=== PATIENT | female | born 1970 | race Caucasian/White ===

== ENCOUNTER 2020-08-09 11:15 | Emergency (ER) | payer BC, SELFPAY ==
[2020-08-09] VITALS (8 sets, daily range): BP systolic 114–151; BP diastolic 65–79; PULSE 81–117; RESP 16–24; TEMP 36.7–37; O2SAT 86–99; BMI 19.6
--- NOTE | 2020-08-09 11:15 | ECG_ITS ---
APPROVED REPORT Exam: Resting ECG HR:79 bpm ECG Measurements Heart Rate 79 AXES MN 88 P 79 QRSd 74 QRS 89 QT 442 T 69 QTc 506 Conclusion Sinus rhythm with marked sinus arrhythmia with short MN Anteroseptal infarct, age undetermined T wave abnormality, consider lateral ischemia Prolonged QT Abnormal ECG Electronically signed by : Cong Chin, 08/10/2020 08:49:05
[2020-08-09 11:44] LABS: Basophils # 0.3 K/mm3 (0-0.2); Basophils % 0.8 % (0.1-2.0); Eosinophils # 1.9 K/mm3 (0.0-0.4); Eosinophils % 5.5 % (0.1-12.0); Hematocrit 41.9 % (37.0-47.0); Hemoglobin 12.3 g/dL (12.2-16.2); Lymphocytes # 1.6 K/mm3 (0.7-4.5); Lymphocytes % 4.6 % (10-50); Mean Corpuscular HGB Conc 29.3 g/dL (31.8-35.4); Mean Corpuscular Volume 81.9 fl (81-99); Mean Platelet Volume 7.6 fl (7.4-10.4); Monocytes # 1.3 K/mm3 (0.1-1.0); Monocytes % 3.7 % (1.7-9.3); Neutrophils # 29.2 K/mm3 (1.8-7.8); Neutrophils % 85.4 % (37.0-80.0); Platelet Count 286 K/mm3 (142-424); Red Blood Count 5.12 M/mm3 (4.20-5.40); Red Cell Distribution Width 15.8 % (11.5-17.5); White Blood Count 34.2 K/mm3 (4.8-10.8)
[2020-08-09 11:46] LABS: Potassium 3.7 mmoL/L (3.5-5.1); Sodium 132 mmol/L (136-145)
[2020-08-09 11:48] LABS: Bilirubin,Unconjugated 0.4 mg/dL (0.0-1.1); Blood Urea Nitrogen 17 mg/dl (7-17); Creatinine Clearance Estimated 165 mL/min (50-200); Estimated Glomerular Filt Rate 235 ml/min (>60); GFR (African American) 284 ML/MIN (>60)
[2020-08-09 11:49] LABS: Alanine Aminotransferase 175 U/L (12-78); Albumin Level 3.4 g/dl (3.5-5.0); Alkaline Phosphatase 330 U/L (38-126); Aspartate Amino Transferase 77 U/L (14-36); Bilirubin,Direct 0.1 mg/dl (0.0-0.4); Bilirubin,Indirect 0.4 mg/dL (0.0-0.9); Bilirubin,Total 0.5 mg/dl (0.2-1.3); Calcium 8.5 mg/dl (8.4-10.2); Glucose 99 mg/dl (74-100); Total Protein,Serum 6.3 g/dl (6.3-8.2)
[2020-08-09 12:00] LABS: Troponin I 0.04 ng/ml (0.00-0.034)
[2020-08-09 12:01] LABS: Anion Gap 5.7 mEq/L (5-15); Chloride 79 mmol/L (98-107)
[2020-08-09 12:02] LABS: Carbon Dioxide 51 mmol/L (22.0-30.0)
[2020-08-09 12:03] LABS: MANUAL DIFFERENTIAL MANUAL DIFFERENTIAL (MANUAL DIFF)
--- NOTE | 2020-08-09 12:03 | PC.NURSE ---
notified ER Of critical CO2 on chemistry panel
--- NOTE | 2020-08-09 12:30 | PC.NURSE ---
LAB KNOWS TO DRAW BLOOD
--- NOTE | 2020-08-09 12:36 | XR_ITS ---
PROCEDURE: XR CHEST PORTABLE CLINICAL HISTORY: weakness COMPARISON: No exams were available for comparison FINDINGS: The cardiomediastinal silhouette and pulmonary vascularity are within normal limits. There is an ill-defined area of increased density in the left upper lobe laterally overlying the 3rd rib anteriorly. This may be due to summation density or due to patchy area of infiltrate or even developing nodule. Upright PA and chest may provide further evaluation. Mild thoracic scoliosis convex right. IMPRESSION: Nonspecific patchy density left upper lobe as described above. Possible small area of infiltrate or developing nodule versus. Consider follow-up confirm stability. Dictated by: Terrell Lucero MD 08/09/2020 13:44 Terrell Lucero MD in [facility] 08/09/2020 13:44
[2020-08-09 12:59] LABS: Eosinophils % 7 % (0-3); Hypochromasia 1+; Lymphocytes % 5 % (10-50); Monocytes % 4 % (2-9); Neutrophils % 79 % (42-76); Platelet Estimate Normal; Total Cells Counted 100
[2020-08-09 13:09] LABS: Ammonia 33 umol/L (9-30)
--- NOTE | 2020-08-09 13:55 | CT_ITS ---
PROCEDURE: CT HEAD/BRAIN WO CON CLINICAL INDICATION: fall COMPARISON: No exams were available for comparison TECHNIQUE: Axial images obtained. All CT scans at the facility use one or more dose reduction, viz: automated exposure control, ma/kV adjustment per patient size (including targeted exams where dose is matched to indication, i.e. head), or iterative reconstruction technique. FINDINGS: No midline shift, mass effect, intracranial hemorrhage, hydrocephalus, or extra-axial fluid collection is evident. In the left frontal parietal region medially there is a small area of decreased density measuring 8 mm the tay-white matter junction. The calvarium has an unremarkable appearance. No mastoid effusion. Small air-fluid level left maxillary sinus. IMPRESSION: 1. 8 mm area of decreased attenuation in the left frontal parietal junction tay-white matter. This is of uncertain clinical significance but could represent a small metastatic focus. CT of the chest done the same day suggest liver metastasis and bony metastasis. CT head with contrast or preferably MRI without and with contrast may provide further evaluation. 2. Left maxillary sinus disease. 3. Otherwise negative Dictated by: Terrell Lucero MD 08/09/2020 14:58 Terrell Lucero MD in [facility] 08/09/2020 14:58
--- NOTE | 2020-08-09 13:56 | CT_ITS ---
PROCEDURE: CT CHEST WO CON CLINICAL INDICATION: possible infiltrate on cxr Weakness and confusion COMPARISON: CR XR CHEST PORTABLE from 08/09/2020 TECHNIQUE: Axial images obtained with sagittal and coronal reformats. All CT scans at the facility use one or more dose reduction, viz: automated exposure control, ma/kV adjustment per patient size (including targeted exams where dose is matched to indication, i.e. head), or iterative reconstruction technique. FINDINGS: HEART AND MEDIASTINAL STRUCTURES: There are few scattered small mediastinal lymph nodes. Mediastinal and hilar evaluation is limited without IV contrast may read LUNGS AND PLEURAL SPACES: COPD with centrilobular emphysema and scattered areas of scarring. In the right apex there is a 4 mm noncalcified nodular opacity with other smaller opacities in this region. In the right upper lobe posteriorly there is a noncalcified spiculated nodule measuring 13 mm. There are other scattered small nodular opacities in both lungs. These are nonspecific. There are no previous exams for comparison to determine if these are old or new. Faint areas of ground-glass attenuation are present in the left upper lobe, lingula, and left lower lobe. A more dense area of consolidation is present in the left lung base posterior medially. An additional area of more dense consolidation is present within the lingula anteriorly. There is 11 mm nodular opacity in the right middle lobe medially BONY STRUCTURES: A sclerotic lesion involves the T7 vertebral body inferiorly and on the left. A mixed lytic and lucent lesion involves the T11 vertebral body centrally and on the left with extension into the pedicle anteriorly. Wedge compression changes involve T12 with loss of height anteriorly of greater than 50 percent and minimal retropulsion of the posterior inferior aspect of T12 by 5 mm. This may be a pathological fracture. There is some decreased density involving the central aspect of the vertebral body suggesting the lytic process. Small sclerotic focus involves the left 5th rib medially a mixed lytic and sclerotic lesion involves the sternum superiorly and on the right. UPPER ABDOMEN: There are multiple low-dense lesions of the liver within both hepatic lobes consistent with diffuse metastatic disease. ADDITIONAL FINDINGS: Along the anterior aspect of the chest wall on the right there is a 11 mm soft tissue nodule IMPRESSION: 1. Suspicious right upper lobe nodule with numerous other small pulmonary nodules consistent with neoplasm. Possibly due to primary lung cancer with metastatic foci. 2. Patchy ground-glass areas of attenuation in both lower lobes and in the right middle lobe and lingula consistent with small areas of bilateral pneumonia which could be related to Covid19. 3. Mixed lytic and blastic lesion of the sternum and T11 with a sclerotic lesion of T7 and a pathological fracture of T12 consistent with metastatic disease 4. Numerous hypodense hepatic masses measuring up to 6 cm consistent with metastatic disease 5. Subcutaneous nodule along the right chest wall which could be due to primary neoplasm or metastatic disease. Mammogram with ultrasound suggested for further evaluation. Dictated by: Terrell Lucero MD 08/09/2020 14:53 Terrell Lucero MD in [facility] 08/09/2020 14:53
--- NOTE | 2020-08-09 14:33 | PC.NURSE ---
PT BACK FROM CT
[2020-08-09 15:25] LABS: Lactic Acid 0.9 mmol/L (0.7-2.1)
[2020-08-09 15:25] LABS: Troponin I 0.04 ng/ml (0.00-0.034)
--- NOTE | 2020-08-09 15:46 | [facility].EDGENADL ---
ED Disposition Clinical Impression: Lung cancer Qualifiers: Laterality: right Lung location: upper lobe of lung Qualified Code(s): C34.11 - Malignant neoplasm of upper lobe, right bronchus or lung Disposition: Home, Self-Care Condition on Discharge: Fair Instructions: How to Prevent Falls Referrals: Provider,Referral, [Primary Care Provider] - Time of Disposition: 15:58 - Critical Care Critical Care Time: No Attestation: On 08/09/20, the high probability of a clinically significant, sudden or life threatening deterioration of the following system(s) required my full and direct attention, intervention and personal management. The time I documented below is in addition to time spent performing reported procedures but includes the following listed in this critical care notation. Medical Decision Making - Medical Records Medical records reviewed: Yes: I reviewed the patient's medical records. MR Comment: Patient has been evaluated and the findings are as follows White blood cell count is 34.2 electrolytes are essentially within normal limits liver enzymes are elevated chest CT shows lung cancer with metastatic foci bilateral pneumonia is also noted CT of the head shows possible metastatic disease to the brain chest x-ray shows bilateral pneumonia patient wants to go home she states she only came here for evaluation of her fall states that she has doctors at [facility] in [place] and she will take up care with them - Len Inquiry Pt receiving controlled substance: No Vital Signs: 08/09/20 11:25 08/09/20 11:40 08/09/20 12:23 Temperature 98.6 F Temperature Source Oral Pulse Rate 87 Pulse Rate [Apical] 84 Respiratory Rate 22 20 Blood Pressure 118/78 Blood Pressure [Left Arm] 151/79 H Blood Pressure Mean Blood Pressure Mean [Left Arm] 103 Blood Pressure Source [Left Arm] Automatic Cuff Blood Pressure Position [Left Arm] Sitting 02 Sat by Pulse Oximetry 86 L 96 92 L Oxygen Delivery Method Nasal Cannula Nasal Cannula Nasal Cannula Oxygen Flow Rate (LPM) 3 4 4 08/09/20 12:30 08/09/20 13:00 08/09/20 13:30 Temperature Temperature Source Pulse Rate 117 H 95 H 89 Pulse Rate [Apical] Respiratory Rate 24 24 20 Blood Pressure 125/65 129/79 114/68 Blood Pressure [Left Arm] Blood Pressure Mean 102 95 83 Blood Pressure Mean [Left Arm] Blood Pressure Source [Left Arm] Blood Pressure Position [Left Arm] 02 Sat by Pulse Oximetry 92 L 92 L 92 L Oxygen Delivery Method Oxygen Flow Rate (LPM) 08/09/20 14:00 Temperature Temperature Source Pulse Rate 99 H Pulse Rate [Apical] Respiratory Rate 22 Blood Pressure 124/76 Blood Pressure [Left Arm] Blood Pressure Mean 86 Blood Pressure Mean [Left Arm] Blood Pressure Source [Left Arm] Blood Pressure Position [Left Arm] 02 Sat by Pulse Oximetry 94 L Oxygen Delivery Method Oxygen Flow Rate (LPM) - Lab Data Lab results reviewed: Yes: I reviewed the patient's lab results. Lab Results 08/09/20 11:25: WBC 34.2 H*, RBC 5.12, Hgb 12.3, Hct 41.9, MCV 81.9, MCH 24.0 L, MCHC 29.3 L, RDW 15.8, Plt Count 286, MPV 7.6, Neut % (Auto) 85.4 H, Lymph % (Auto) 4.6 L, [place] % (Auto) 3.7, Eos % (Auto) 5.5, Baso % (Auto) 0.8, Neut # (Auto) 29.2 H, Lymph # (Auto) 1.6, [place] # (Auto) 1.3 H, Eos # (Auto) 1.9 H, Baso # (Auto) 0.3 H, Total Counted 100, Neutrophils % (Manual) 79 H, Band Neutrophils % 3.0, Lymphocytes % (Manual) 5 L, Monocytes % (Manual) 4, Eosinophils % (Manual) 7 H, Metamyelocytes % 1.0, Blast Cells % 1.0, Platelet Estimate Normal, Hypochromasia 1+ 08/09/20 11:25: Sodium 132 L, Potassium 3.7, Chloride 79 L, Carbon Dioxide 51 H*, Anion Gap 5.7, BUN 17, Creatinine 0.30 L, Estimated Creat Clear 165, Estimated GFR 235, Est GFR ( Amer) 284, Glucose 99, Calcium 8.5, Total Bilirubin 0.5, Direct Bilirubin 0.1, Conjugated Bilirubin 0.0, Indirect Bilirubin 0.4, Unconjugated Bilirubin 0.4, AST 77 H, ALT 175 H, [place]
[2020-08-09 15:52] LABS: Adenovirus,PCR Not Detected (NotDetected); Bordetella Pertussis Not Detected (NotDetected); Chlamydophila Pneumoniae, PCR Not Detected (NotDetected); Coronavirus 19, PCR Not Detected (NotDetected); Coronavirus 229E Not Detected (NotDetected); Coronavirus NL63 Not Detected (NotDetected); Coronavirus OC43 Not Detected (NotDetected); Coronovirus HKU1,PCR Not Detected (NotDetected); Human Metapneumovirus Not Detected (NotDetected); Influenza A, PCR Not Detected (NotDetected); Influenza AH1, 2009 Not Detected (NotDetected); Influenza AH1, PCR Not Detected (NotDetected); Influenza AH3,PCR Not Detected (NotDetected); Influenza B, PCR Not Detected (NotDetected); Mycoplasma Pneumoniae, PCR Not Detected (NotDetected); Parainfluenza 1, PCR Not Detected (NotDetected); Parainfluenza 2, PCR Not Detected (NotDetected); Parainfluenza 3, PCR Not Detected (NotDetected); Parainfluenza 4, PCR Not Detected (NotDetected); Respiratory Syncytial Virus Not Detected (NotDetected); Rhinovirus/Enterovirus Not Detected (NotDetected)
[2020-08-09 15:54] LABS: Adenovirus,PCR Not Detected (NotDetected); Bordetella Pertussis Not Detected (NotDetected); Chlamydophila Pneumoniae, PCR Not Detected (NotDetected); Coronavirus 19, PCR Not Detected (NotDetected); Coronavirus 229E Not Detected (NotDetected); Coronavirus NL63 Not Detected (NotDetected); Coronavirus OC43 Not Detected (NotDetected); Coronovirus HKU1,PCR Not Detected (NotDetected); Human Metapneumovirus Not Detected (NotDetected); Influenza A, PCR Not Detected (NotDetected); Influenza AH1, 2009 Not Detected (NotDetected); Influenza AH1, PCR Not Detected (NotDetected); Influenza AH3,PCR Not Detected (NotDetected); Influenza B, PCR Not Detected (NotDetected); Mycoplasma Pneumoniae, PCR Not Detected (NotDetected); Parainfluenza 1, PCR Not Detected (NotDetected); Parainfluenza 2, PCR Not Detected (NotDetected); Parainfluenza 3, PCR Not Detected (NotDetected); Parainfluenza 4, PCR Not Detected (NotDetected); Respiratory Syncytial Virus Not Detected (NotDetected); Rhinovirus/Enterovirus Not Detected (NotDetected)
== END 2020-08-09 16:15 | disposition home or self-care (01) ==
PROVIDERS: Emergency Provider Emergency Medicine
DX: R55 Syncope and collapse (principal); C34.11 Malignant neoplasm of upper lobe, right bronchus or lung; C79.51 Secondary malignant neoplasm of bone; C79.31 Secondary malignant neoplasm of brain; C78.7 Secondary malignant neoplasm of liver and intrahepatic bile duct; J18.9 Pneumonia, unspecified organism; I10 Essential (primary) hypertension; F17.210 Nicotine dependence, cigarettes, uncomplicated; Z79.899 Other long term (current) drug therapy
CPT/HCPCS: 36415; 70450; 71045; 71250; 80048; 80076; 82140; 83605; 84484; 85007; 85025; 87040; 87581; 87633; 87798; 93005; 99282